=== PATIENT | male | born 1990 | race African-American/Black ===

== ENCOUNTER 2017-04-09 20:57 | Emergency (ER) | payer OTHER ==
[~2017-04-09] VITALS: Ht 182.9 cm; Wt 90.2 kg
[2017-04-09 21:03] VITALS: Ht 182.9 cm; Wt 90.2 kg
--- NOTE | 2017-04-09 22:55 | RADRPT ---
PROCEDURE: XR Chest. CLINICAL INDICATION: Chest pain TECHNIQUE: Single portable view of the chest was obtained. COMPARISON: None. FINDINGS: Cardiac/vascular structures: Normal cardiomediastinal silhouette. Pulmonary: Lungs are clear. No pleural effusion. No evidence of pneumothorax. Osseous structures: Normal Soft tissues: Normal IMPRESSION: No acute cardiopulmonary disease. RPTAT:AAJJ Physician [place] Date Time Electronically viewed and signed by Matthew Del Toro Physician on 04/09/2017 22:54 /
[2017-04-09] MEDS ORDERED: NAPR-260 PO (23:27)
--- NOTE | 2017-04-09 23:31 | ERD ---
ER Documentation Chief Complaint Chief Complaint chest pain since 1 hour ago, anxiety, left arm numbness since 2 hours ago HPI This is a 26-year-old male that presents to the ER with chest pain shortness of breath that started at noon. Chest pain is located over the left side of his chest wall and radiates down his left arm. Patient states that pain is pressure -like and sharp. Patient denies any recent travel, recent surgery or leg pain, redness or swelling. Chest pain shortness of breath is nonexertional. He denies any cough or cold symptoms he has not had any fevers or chills. He denies any family history of cardiac problems. Denies any drug use. ROS . 12 point review of systems was done, all negative except per HPI. Medications Home Meds Active Scripts Naproxen* (Naprosyn*) 500 Mg Tablet, 500 MG PO BID Y for PAIN AND/OR INFLAMMATION, #30 TAB Prov:ZULEMA SANCHEZ 04/09/17 Allergies Allergies: Coded Allergies: No Known Allergy (Unverified , 04/09/17) PMhx/Soc Medical and Surgical Hx: pt denies Medical Hx, pt denies Surgical Hx Hx Alcohol Use: No Hx Substance Use: No Hx Tobacco Use: No Smoking Status: Never smoker Physical Exam Vitals Vital Signs Date Time Temp Pulse Resp B/P Pulse Ox O2 Delivery O2 Flow Rate FiO2 04/09/17 21:03 98.3 77 20 138/73 100 Physical Exam GENERAL: The patient is well developed and appropriate for usual state of health , in no apparent distress. HEENT: Atraumatic. Conjunctivae are pink. Pupils equal, round, and reactive to light. Extraocular muscles are grossly intact. Bilateral tympanic membranes are clear with no evidence of erythema, effusion or dulling of the light reflex. The oropharynx is clear with no erythema or exudates. NECK: C-spine is soft and supple. There is no cervical lymphadenopathy. CHEST: Clear to auscultation bilaterally. There are no rales, wheezes or rhonchi. HEART: Regular rate and rhythm. No murmurs, clicks, rubs or gallops. ABDOMEN: Soft, nontender and nondistended. Good bowel sounds. No rebound or guarding. No gross peritonitis. No gross organomegaly or masses. No Butler sign or McBurney point tenderness. No pulsatile masses. BACK: No midline or flank tenderness. EXTREMITIES: Equal pulses bilaterally. There is no peripheral clubbing, cyanosis or edema. No focal swelling or erythema. Full range of motion. Grossly neurovascularly intact. NEURO: Alert and oriented. Cranial nerves II through XII are intact. Motor strength in all 4 extremities with 5/5 strength. Sensation grossly intact. Normal speech and gait. SKIN: There is no apparent rash or petechia. The skin is warm and dry. Procedures/MDM Differential diagnosis includes but is not limited to; STEMI, dissection, pneumothorax, PE, esophageal rupture, tamponade, pneumonia, pericarditis, GERD, musculoskeletal, endocarditis, anxiety. EKG was taken [address] elevation or T-wave inversion this EKG was read by At this time etiology of chest pain is unknown, however suspicion for acute cardiac etiology is low. Suspicion for pulmonary embolism is low, patient does not have any PERC criteria. She will be sent home with naproxen. He needs to follow-up with his primary care doctor within 1-2 days or return to ER sooner as worsen. My medical decision making sure with the patient he understands and agrees with plan. Departure Diagnosis: Primary Impression: Chest pain Condition: Stable Patient Instructions: Chest Pain, Uncertain Cause Additional Instructions: Call your primary care doctor TOMORROW for an appointment during the next 1-2 days.See the doctor sooner or return here if your condition worsens before your appointment time. ZULEMA SANCHEZ Apr 09, 2017 23:31
== END 2017-04-09 23:35 | disposition home or self-care (01) ==
LOC: FTE 20:57
DX: R07.9 Chest pain, unspecified (principal)
CPT/HCPCS: 71010; 93005